=== PATIENT | male | born 1980 | race Caucasian/White ===

== ENCOUNTER 2018-01-14 14:36 | Emergency (ER) | payer OTHER ==
[~2018-01-14] VITALS: Ht 175.3 cm; Wt 83.9 kg
--- NOTE | ~2018-01-14 | EKG ---
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
[2018-01-14 15:02] LABS: HEMATOCRIT 38.7 % (42.0-52.0); HEMOGLOBIN 13.2 gm/dL (14.0-18.0); MCH 31.3 pg (26.0-34.0); MCV 91.9 fL (80.0-100.0); PLATELET COUNT 188 thou/uL (150-400); RBC 4.21 mil/uL (4.50-6.00); RDW 13.5 % (10.5-14.5); WBC 17.3 thou/uL (4.0-11.0)
[2018-01-14 15:11] LABS: ANION GAP 7 mmol/L (7-16); BUN 10 mg/dL (7-18); CALCIUM 8.8 mg/dL (8.5-10.1); CHLORIDE 91 mmol/L (98-107); CO2 29 mmol/L (21-32); CREATININE 0.9 mg/dL (0.7-1.3); GLUCOSE 140 mg/dL (74-106); POTASSIUM 3.4 mmol/L (3.5-5.1); SODIUM 127 mmol/L (136-145)
[2018-01-14 15:17] LABS: ALBUMIN 3.5 g/dL (3.4-5.0); DIRECT BILIRUBIN 0.5 mg/dL (<0.1-0.3); SGOT 45 U/L (15-37); SGPT 41 U/L (30-65); TOTAL PROTEIN 7.5 g/dL (6.4-8.2)
[2018-01-14 15:18] LABS: SALICYLATE < 2.8 mg/dL (2.8-20.0)
[2018-01-14 15:24] LABS: ABSOLUTE NEUTROPHILS 13.8 thou/uL (1.4-8.2); NUCLEATED RBCS 1 /100WBC; PLATELET ESTIMATE NORMAL
[2018-01-14 15:33] VITALS: BP 132/82
[2018-01-14 15:52] LABS: APTT 28.9 Seconds (24.5-32.8); PROTIME 10.4 Seconds (9.3-11.4)
== END 2018-01-14 15:52 | disposition short-term general hospital (02) ==
LOC: ER 14:36
PROVIDERS: Emergency Medicine
DX: S02.19XA Other fracture of base of skull, initial encounter for closed fracture (principal); R50.9 Fever, unspecified; R11.2 Nausea with vomiting, unspecified; R94.5 Abnormal results of liver function studies; E87.1 Hypo-osmolality and hyponatremia; D72.829 Elevated white blood cell count, unspecified; R73.9 Hyperglycemia, unspecified; G93.40 Encephalopathy, unspecified; F10.10 Alcohol abuse, uncomplicated; W10.9XXA Fall (on) (from) unspecified stairs and steps, initial encounter; Y93.89 Activity, other specified; Y92.89 Other specified places as the place of occurrence of the external cause; Y99.8 Other external cause status

== ENCOUNTER 2018-05-20 20:31 | Emergency (ER) | payer OTHER ==
[~2018-05-20] VITALS: Ht 180.3 cm; Wt 90.7 kg
--- NOTE | ~2018-05-20 | EKG ---
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
[2018-05-20 21:22] LABS: ABSOLUTE NEUTROPHILS 8.7 thou/uL (1.4-8.2); BASOPHILS 0.7 % (0.0-2.0); EOSINOPHILS 7.9 % (0.0-3.0); HEMATOCRIT 38.2 % (42.0-52.0); HEMOGLOBIN 12.5 gm/dL (14.0-18.0); LYMPHOCYTES 28.5 % (24.0-44.0); MCH 25.9 pg (26.0-34.0); MCHC 32.8 g/dL (28.0-37.0); MCV 78.8 fL (80.0-100.0); MONOCYTES 5.9 % (1.0-8.0); PLATELET COUNT 282 thou/uL (150-400); RBC 4.85 mil/uL (4.50-6.00); WBC 15.3 thou/uL (4.0-11.0)
[2018-05-20 21:32] LABS: ANION GAP 16 mmol/L (7-16); BUN 6 mg/dL (7-18); CALCIUM 9.2 mg/dL (8.5-10.1); CHLORIDE 97 mmol/L (98-107); CO2 21 mmol/L (21-32); GLUCOSE 113 mg/dL (74-106); POTASSIUM 3.3 mmol/L (3.5-5.1); SODIUM 134 mmol/L (136-145)
[2018-05-20 21:37] LABS: ALBUMIN 3.5 g/dL (3.4-5.0); DIRECT BILIRUBIN < 0.1 mg/dL (<0.1-0.3); LIPASE 118 U/L (73-393); SGOT 22 U/L (15-37); SGPT 22 U/L (30-65); TOTAL BILIRUBIN 0.4 mg/dL (<0.1-1.0); TOTAL PROTEIN 7.9 g/dL (6.4-8.2)
[2018-05-20] MEDS ORDERED: KEPPRA 500 MG500 M1 PO (22:05)
[2018-05-20 22:25] VITALS: BP 110/73
== END 2018-05-20 22:25 | disposition home or self-care (01) ==
LOC: ER 20:31
PROVIDERS: Emergency Medicine
DX: R56.9 Unspecified convulsions (principal); F10.99 Alcohol use, unspecified with unspecified alcohol-induced disorder; Y90.0 Blood alcohol level of less than 20 mg/100 ml